=== PATIENT | female | born 1935 | race Caucasian/White ===

== ENCOUNTER 2019-09-05 20:19 | Inpatient (IN) ==
[2019-09-05] MEDS ORDERED: *HR* Dextrose 50 % in Water (Syg) 50 ML SYRINGE IVP PRN (23:25)
[2019-09-05] MEDS ORDERED: Dextrose Gel 15 GM/37.5 ML TUBE PO PRN ×2 (23:25)
[2019-09-05] MEDS ORDERED: D5% in Water 1,000 ML IVC PRN (23:25)
[2019-09-05] MEDS ORDERED: Morphine Sulfate 2 MG/ML SYRINGE IVP ONE (23:29)
[2019-09-06] MEDS: Insulin LISPRO 300 UNITS/3 ML VIAL SQ SCH ×4 (00:17→18:12)
[2019-09-06] MEDS ORDERED: Naloxone 0.4 MG/ML INJ IVP PRN (02:19)
[2019-09-06 03:12] LABS: Basophils % 0.3 %; Eosinophils % 0.2 %; Hematocrit 35.1 % (35.3-44.9); Hemoglobin 11.3 g/dL (11.5-15.4); Immature Granulocytes % 0.4 % (0-4); Lymphocytes # 1.1 K/mcL (0.6-4.6); Lymphocytes % 9.9 %; Mean Corpuscular HGB Conc 32.2 g/dL (31.6-35.5); Mean Corpuscular Hemoglobin 30.8 pg (28.0-33.3); Mean Corpuscular Volume 95.6 fL (83.0-100.0); Mean Platelet Volume 10.4 fL (9.4-12.4); Monocytes # 0.7 K/mcL (0.0-1.3); Monocytes % 6.9 %; Neutrophils # 8.8 K/mcL (1.6-8.9); Platelet Count 231 K/mcL (140-400); Red Blood Count 3.67 M/mcL (3.82-4.97); Red Cell Distribution Width 13.6 % (11.5-14.5); Segmented Neutrophils % 82.3 %; White Blood Count 10.7 K/mcL (4.3-11.1)
[2019-09-06 03:31] LABS: Alanine Aminotransferase 9 Units/L (7-52); Albumin 3.5 g/dL (3.5-5.7); Albumin/Globulin Ratio 1.1 (1.1-2.2); Alkaline Phosphatase 58 Units/L (34-104); Aspartate Amino Transferase 19 Units/L (13-39); BUN/Creatinine Ratio 21 (6-26); Bilirubin,Total 0.9 mg/dL (0.3-1.0); Blood Urea Nitrogen 19 mg/dL (8-23); Calcium 8.4 mg/dL (8.6-10.3); Carbon Dioxide 23 mEq/L (23-29); Chloride 105 mEq/L (98-107); Globulin 3.2 g/dL (2.4-3.5); Glucose 222 mg/dL (70-105); Magnesium 1.7 mg/dL (1.6-2.6); Osmolality,Calculated 283 (280-300); Phosphorous 2.8 mg/dL (2.7-4.5); Potassium 4.4 mEq/L (3.5-5.1); Sodium 132 mEq/L (136-145); Total Protein 6.7 g/dL (6.4-8.9); eGFR For African Americans > 60 (> 60); eGFR For Non-African Americans 60 (> 60)
[2019-09-06] MEDS ORDERED: *HR* Heparin 5,000 UNIT/ML VIAL IVP ONE (05:52)
[2019-09-06] MEDS ORDERED: Aspirin Enteric Coated 325 MG Tablet PO ONE (05:52)
[2019-09-06] MEDS ORDERED: *HR* Heparin 5,000 UNIT/ML VIAL IVP PRN ×2 (05:52)
[2019-09-06] MEDS ORDERED: Heparin 25,000 UNIT/250 ML D5W 25,000 UNIT/250 ML IV.SOLN IVC SCH (06:00)
[2019-09-06] MEDS ORDERED: Calcium Gluconate 1gm/50mL 1 GM/50 ML BAG IVPB ONE (06:32)
[2019-09-06 06:42] LABS: Hematocrit 32.9 % (35.3-44.9); Hemoglobin 10.6 g/dL (11.5-15.4); Mean Corpuscular HGB Conc 32.2 g/dL (31.6-35.5); Mean Corpuscular Hemoglobin 30.9 pg (28.0-33.3); Mean Corpuscular Volume 95.9 fL (83.0-100.0); Mean Platelet Volume 10.3 fL (9.4-12.4); Platelet Count 206 K/mcL (140-400); Red Blood Count 3.43 M/mcL (3.82-4.97); Red Cell Distribution Width 13.7 % (11.5-14.5)
[2019-09-06 06:58] LABS: INR 1.1; Prothrombin Time 12.8 Seconds (9.4-12.1)
[2019-09-06 14:17] LABS: Bilirubin,Urine Negative (Negative); Blood,Urine Small (Negative); Clarity,Urine Clear (Clear); Color,Urine Yellow (Yellow); Glucose,Urine (UA) Normal (Normal); Ketones,Urine Negative (Negative); Leukocyte Esterase,Urine Negative (Negative); Nitrite,Urine Negative (Negative); PH,Urine 5.5 pH Units (5.0-8.0); Protein,Urine 30 mg/dL (Neg-Trace); Specific Gravity,Urine 1.019 (1.010-1.025); Urobilinogen,Urine Normal (Normal)
[2019-09-06 14:21] LABS: Bacteria,Urine None Seen per hpf (None-Few); Hyaline Casts,Urine Few per lpf (None-Few); Squamous Epithelial Cell,Urine Many per lpf (None-Few)
[2019-09-06] MEDS: *HR* Heparin 5,000 UNIT/ML VIAL SQ SCH (18:12)
[2019-09-06] MEDS: Lactobacillus 1 EACH CAP.SPRINK PO SCH (19:30)
[2019-09-07] MEDS: Insulin LISPRO 300 UNITS/3 ML VIAL SQ SCH ×4 (00:54→19:39)
[2019-09-07] MEDS: *HR* Heparin 5,000 UNIT/ML VIAL SQ SCH ×2 (06:04→19:38)
[2019-09-07] MEDS: Lactobacillus 1 EACH CAP.SPRINK PO SCH (08:19)
[2019-09-07] MEDS: Acetaminophen IV 1,000 MG/100 ML INFUS..BTL IVPB SCH ×2 (10:29→17:37)
[2019-09-08] MEDS: Insulin LISPRO 300 UNITS/3 ML VIAL SQ SCH ×4 (00:19→21:31)
[2019-09-08] MEDS: Acetaminophen IV 1,000 MG/100 ML INFUS..BTL IVPB SCH ×2 (01:41→12:04)
[2019-09-08] MEDS: *HR* Heparin 5,000 UNIT/ML VIAL SQ SCH ×2 (04:15→18:19)
[2019-09-08 06:11] LABS: Basophils % 0.3 %; Eosinophils # 0.3 K/mcL (0.0-0.6); Eosinophils % 3.3 %; Hematocrit 31.8 % (35.3-44.9); Hemoglobin 10.6 g/dL (11.5-15.4); Immature Granulocytes % 0.6 % (0-4); Lymphocytes # 1.5 K/mcL (0.6-4.6); Lymphocytes % 16.7 %; Mean Corpuscular HGB Conc 33.3 g/dL (31.6-35.5); Mean Corpuscular Hemoglobin 30.7 pg (28.0-33.3); Mean Corpuscular Volume 92.2 fL (83.0-100.0); Mean Platelet Volume 10.3 fL (9.4-12.4); Monocytes # 0.9 K/mcL (0.0-1.3); Monocytes % 10.1 %; Neutrophils # 6.1 K/mcL (1.6-8.9); Platelet Count 191 K/mcL (140-400); Red Blood Count 3.45 M/mcL (3.82-4.97); Red Cell Distribution Width 13.2 % (11.5-14.5); White Blood Count 8.8 K/mcL (4.3-11.1)
[2019-09-08 06:33] LABS: Calcium 8.4 mg/dL (8.6-10.3); Potassium 4.5 mEq/L (3.5-5.1)
[2019-09-08] MEDS: Lactobacillus 1 EACH CAP.SPRINK PO SCH (08:24)
[2019-09-08] MEDS ORDERED: VERAPAMIL PO SCH (12:30)
[2019-09-08] MEDS ORDERED: TRANDOLAPRIL PO SCH (12:30)
[2019-09-08] MEDS ORDERED: *HR* Propofol 200 MG/20 ML VIAL IVP ONE ×2 (15:07→15:35)
[2019-09-08] MEDS ORDERED: *HR* FentaNYL (PF) 100 MCG/2 ML VIAL ONE ×2 (15:07→15:36)
[2019-09-08] MEDS ORDERED: Clindamycin 900 MG/50 ML 900 MG/50 ML IV.SOLN IVPB ONE ×2 (15:14→15:41)
[2019-09-08] MEDS ORDERED: Acetaminophen IV 1,000 MG/100 ML INFUS..BTL ONE (15:17)
[2019-09-08] MEDS ORDERED: Famotidine 20 MG/2 ML VIAL ONE (15:17)
[2019-09-08] MEDS ORDERED: Ethanol\\Acetic Acid\\Na Ace\\Ben 1,000 ML IRRIG.SOLN IR ONE (15:22)
[2019-09-08] MEDS ORDERED: *HR* Phenylephrine 10 MG/ML VIAL ONE (15:33)
[2019-09-08] MEDS ORDERED: Ondansetron 4 MG/2 ML VIAL ONE (15:33)
[2019-09-08] MEDS ORDERED: *HR* Rocuronium Bromide 50 MG/5 ML VIAL ONE (15:33)
[2019-09-08] MEDS ORDERED: Lidocaine -MPF 2% 2 ML VIAL ONE (15:33)
[2019-09-08] MEDS ORDERED: EPHEDrine 50 MG/ML VIAL ONE (15:52)
[2019-09-08] MEDS ORDERED: *HR* Succinylcholine 200 MG/10 ML VIAL IVP ONE (15:59)
[2019-09-08] MEDS ORDERED: Esmolol 100 MG/10 ML VIAL IVP ONE (16:05)
[2019-09-08] MEDS ORDERED: Morphine Sulfate 2 MG/ML SYRINGE IVP PRN (16:33)
[2019-09-08] MEDS ORDERED: Ondansetron 4 MG/2 ML VIAL IVP ONE (16:33)
[2019-09-08 17:29] LABS: Hematocrit 32.5 % (35.3-44.9); Hemoglobin 10.5 g/dL (11.5-15.4)
[2019-09-08] MEDS ORDERED: Sennosides 8.6 MG TABLET PO PRN (18:00)
[2019-09-08] MEDS ORDERED: Naloxone 0.4 MG/ML INJ IVP PRN ×2 (18:00)
[2019-09-08] MEDS ORDERED: Ringers Solution, Lactated 1,000 ML IVC SCH (18:00)
[2019-09-08] MEDS ORDERED: Dextrose Gel 15 GM/37.5 ML TUBE PO PRN ×2 (18:00)
[2019-09-08] MEDS ORDERED: *HR* Dextrose 50 % in Water (Syg) 50 ML SYRINGE IVP PRN (18:00)
[2019-09-08] MEDS ORDERED: Ondansetron 4 MG/2 ML VIAL IVP PRN (18:00)
[2019-09-08] MEDS ORDERED: MOM Conc 10 ML UD.LIQ PO PRN (18:00)
[2019-09-08] MEDS ORDERED: Insulin LISPRO 300 UNITS/3 ML VIAL SQ SCH (18:00)
[2019-09-08] MEDS ORDERED: Clindamycin 900 MG/50 ML 900 MG/50 ML IV.SOLN IVPB SCH (18:00)
[2019-09-08] MEDS ORDERED: *HR* Promethazine 25 MG/ML VIAL IVP PRN (18:00)
[2019-09-08] MEDS ORDERED: Temazepam 15 MG CAPSULE PO PRN (18:00)
[2019-09-08] MEDS ORDERED: D5% in Water 1,000 ML IVC PRN (18:00)
[2019-09-08] MEDS: Ascorbic Acid 500 MG TABLET PO SCH (18:18)
[2019-09-09] MEDS: Clindamycin 900 MG/50 ML 900 MG/50 ML IV.SOLN IVPB SCH ×2 (00:37→09:13)
[2019-09-09] MEDS: Acetaminophen IV 1,000 MG/100 ML INFUS..BTL IVPB SCH ×3 (00:38→18:10)
[2019-09-09 04:11] LABS: Basophils % 0.2 %; Eosinophils # 0.2 K/mcL (0.0-0.6); Eosinophils % 2.5 %; Hemoglobin 9.5 g/dL (11.5-15.4); Immature Granulocytes % 0.7 % (0-4); Lymphocytes # 1.1 K/mcL (0.6-4.6); Mean Corpuscular HGB Conc 32.8 g/dL (31.6-35.5); Mean Corpuscular Hemoglobin 30.6 pg (28.0-33.3); Mean Corpuscular Volume 93.5 fL (83.0-100.0); Mean Platelet Volume 10.8 fL (9.4-12.4); Monocytes # 0.8 K/mcL (0.0-1.3); Neutrophils # 6.2 K/mcL (1.6-8.9); Platelet Count 196 K/mcL (140-400); Red Cell Distribution Width 13.4 % (11.5-14.5); Segmented Neutrophils % 73.6 %; White Blood Count 8.4 K/mcL (4.3-11.1)
[2019-09-09 04:31] LABS: Blood Urea Nitrogen 17 mg/dL (8-23); Carbon Dioxide 25 mEq/L (23-29); Chloride 98 mEq/L (98-107); Potassium 4.6 mEq/L (3.5-5.1); Sodium 131 mEq/L (136-145)
[2019-09-09 04:32] LABS: BUN/Creatinine Ratio 17 (6-26); Calcium 8.2 mg/dL (8.6-10.3); Glucose 169 mg/dL (70-105); Osmolality,Calculated 277 (280-300); eGFR For African Americans > 60 (> 60); eGFR For Non-African Americans 53 (> 60)
[2019-09-09] MEDS: *HR* Heparin 5,000 UNIT/ML VIAL SQ SCH ×2 (04:59→18:09)
[2019-09-09] MEDS: Lactobacillus 1 EACH CAP.SPRINK PO SCH (09:13)
[2019-09-09] MEDS: Ascorbic Acid 500 MG TABLET PO SCH ×2 (09:14→15:25)
[2019-09-09] MEDS: Insulin LISPRO 300 UNITS/3 ML VIAL SQ SCH ×4 (09:15→20:11)
[2019-09-09] MEDS: Multivit/Ca/Min/Fe/FA 1 TAB TABLET PO SCH (15:13)
[2019-09-09] MEDS: Patient Taking Own Medication 1 EACH PO SCH (15:24)
[2019-09-09] MEDS: Aspirin Enteric Coated 81 MG Tablet PO SCH (15:25)
[2019-09-09] MEDS ORDERED: Aminoglycoside Consult 1 EACH MC ONE (18:42)
[2019-09-10] MEDS: Acetaminophen IV 1,000 MG/100 ML INFUS..BTL IVPB SCH ×2 (00:16→07:56)
[2019-09-10 03:52] LABS: Basophils % 0.3 %; Eosinophils # 0.3 K/mcL (0.0-0.6); Eosinophils % 2.7 %; Hematocrit 28.8 % (35.3-44.9); Hemoglobin 9.5 g/dL (11.5-15.4); Immature Granulocytes % 0.7 % (0-4); Lymphocytes # 2.2 K/mcL (0.6-4.6); Lymphocytes % 19.4 %; Mean Corpuscular Hemoglobin 31.5 pg (28.0-33.3); Mean Corpuscular Volume 95.4 fL (83.0-100.0); Mean Platelet Volume 10.8 fL (9.4-12.4); Monocytes # 1.4 K/mcL (0.0-1.3); Monocytes % 12.5 %; Neutrophils # 7.4 K/mcL (1.6-8.9); Platelet Count 225 K/mcL (140-400); Red Blood Count 3.02 M/mcL (3.82-4.97); Red Cell Distribution Width 13.4 % (11.5-14.5); Segmented Neutrophils % 64.4 %; White Blood Count 11.4 K/mcL (4.3-11.1)
[2019-09-10 04:15] LABS: BUN/Creatinine Ratio 14 (6-26); Blood Urea Nitrogen 14 mg/dL (8-23); Calcium 8.5 mg/dL (8.6-10.3); Carbon Dioxide 25 mEq/L (23-29); Chloride 93 mEq/L (98-107); Glucose 107 mg/dL (70-105); Osmolality,Calculated 265 (280-300); Potassium 4.3 mEq/L (3.5-5.1); Sodium 127 mEq/L (136-145); eGFR For African Americans > 60 (> 60); eGFR For Non-African Americans 52 (> 60)
[2019-09-10] MEDS: *HR* Heparin 5,000 UNIT/ML VIAL SQ SCH (05:26)
[2019-09-10] MEDS: Multivit/Ca/Min/Fe/FA 1 TAB TABLET PO SCH (07:56)
[2019-09-10] MEDS: Ascorbic Acid 500 MG TABLET PO SCH (07:56)
[2019-09-10] MEDS: Lactobacillus 1 EACH CAP.SPRINK PO SCH (07:56)
[2019-09-10] MEDS: Aspirin Enteric Coated 81 MG Tablet PO SCH (07:57)
[2019-09-10] MEDS: Patient Taking Own Medication 1 EACH PO SCH (07:58)
[2019-09-10] MEDS: Insulin LISPRO 300 UNITS/3 ML VIAL SQ SCH ×2 (08:05→13:23)
[2019-09-10] MEDS ORDERED: Fosfomycin Tromethamine 3 GM Packet PO ONE (08:30)
[2019-09-10] MEDS ORDERED: Acetaminophen 325 MG TABLET PO PRN ×2 (15:18→15:21)
[2019-09-10 17:12] VITALS: BP 137/60
== END 2019-09-10 18:43 | disposition home or self-care (01) | DRG 469 ==
LOC: 3NENU → SUATTDRO 09-06 02:19
PROVIDERS: ADMIT Internal Medicine; ATTEND Internal Medicine

== ENCOUNTER 2019-10-15 22:58 | Inpatient (IN) ==
[2019-10-16] MEDS ORDERED: Naloxone 0.4 MG/ML INJ IVP PRN (02:17)
[2019-10-16] MEDS ORDERED: Nitroglycerin 0.4 MG TAB.SUBL SL PRN (02:23)
[2019-10-16] MEDS ORDERED: *HR* Heparin 5,000 UNIT/ML VIAL IVP ONE (02:38)
[2019-10-16] MEDS ORDERED: *HR* Heparin 5,000 UNIT/ML VIAL IVP PRN ×2 (02:38)
[2019-10-16] MEDS ORDERED: Heparin 25,000 UNIT/250 ML D5W 25,000 UNIT/250 ML IV.SOLN IVC SCH (02:45)
[2019-10-16 03:17] LABS: Basophils % 0.3 %; Eosinophils % 0.1 %; Hematocrit 30.6 % (35.3-44.9); Hemoglobin 10.2 g/dL (11.5-15.4); Immature Granulocytes % 0.7 % (0-4); Lymphocytes # 2.6 K/mcL (0.6-4.6); Lymphocytes % 18.7 %; Mean Corpuscular HGB Conc 33.3 g/dL (31.6-35.5); Mean Corpuscular Hemoglobin 30.3 pg (28.0-33.3); Mean Corpuscular Volume 90.8 fL (83.0-100.0); Mean Platelet Volume 9.9 fL (9.4-12.4); Monocytes # 1.1 K/mcL (0.0-1.3); Monocytes % 8.1 %; Neutrophils # 9.9 K/mcL (1.6-8.9); Platelet Count 312 K/mcL (140-400); Red Blood Count 3.37 M/mcL (3.82-4.97); Red Cell Distribution Width 14.2 % (11.5-14.5); Segmented Neutrophils % 72.1 %; White Blood Count 13.8 K/mcL (4.3-11.1)
[2019-10-16 03:24] LABS: INR 1.3
[2019-10-16 03:43] LABS: Calcium 8.8 mg/dL (8.6-10.3); Potassium 4.7 mEq/L (3.5-5.1)
[2019-10-16 03:52] LABS: Albumin 3.5 g/dL (3.5-5.7); Albumin/Globulin Ratio 1.1 (1.1-2.2); Bilirubin,Direct 0.2 mg/dL (0.0-0.2); Bilirubin,Indirect 0.6 mg/dL (0.0-1.0); Bilirubin,Total 0.8 mg/dL (0.3-1.0); Globulin 3.1 g/dL (2.4-3.5); Total Protein 6.6 g/dL (6.4-8.9)
[2019-10-16 04:05] LABS: Thyroid Stimulating Hormone 4.29 mcIU/mL (0.340-5.600)
[2019-10-16] MEDS: Insulin LISPRO 300 UNITS/3 ML VIAL SQ SCH ×4 (04:34→16:47)
[2019-10-16] MEDS ORDERED: Aspirin 81 MG TAB.CHEW PO SCH (09:00)
[2019-10-16] MEDS ORDERED: Furosemide 40 MG/4 ML VIAL IVP SCH (12:45)
[2019-10-16] MEDS ORDERED: Sennosides/Docusate Sodium TABLET PO PRN (13:57)
[2019-10-16] MEDS ORDERED: Dextrose Gel 15 GM/37.5 ML TUBE PO PRN ×2 (13:59)
[2019-10-16] MEDS ORDERED: D5% in Water 1,000 ML IVC PRN (13:59)
[2019-10-16] MEDS ORDERED: *HR* Dextrose 50 % in Water (Syg) 50 ML SYRINGE IVP PRN (13:59)
[2019-10-16] MEDS: Acetaminophen 325 MG TABLET PO SCH ×2 (16:47→20:09)
[2019-10-16] MEDS: Melatonin 3 MG TABLET PO SCH (20:09)
[2019-10-17] MEDS ORDERED: Heparin 25,000 UNIT/250 ML D5W 25,000 UNIT/250 ML IV.SOLN IVC SCH (00:08)
[2019-10-17 03:50] LABS: Bilirubin,Urine Negative (Negative); Blood,Urine Negative (Negative); Clarity,Urine Clear (Clear); Color,Urine Yellow (Yellow); Glucose,Urine (UA) Normal (Normal); Ketones,Urine Negative (Negative); Leukocyte Esterase,Urine Moderate (Negative); Nitrite,Urine Negative (Negative); Protein,Urine Negative (Neg-Trace); Urobilinogen,Urine Normal (Normal)
[2019-10-17 03:52] LABS: Bacteria,Urine Many per hpf (None-Few); Hyaline Casts,Urine None Seen per lpf (None-Few); RBC,Urine 0-3 per hpf (0-3); Squamous Epithelial Cell,Urine Few per lpf (None-Few); WBC,Urine 30-50 per hpf (0-3)
[2019-10-17 03:59] LABS: Creatinine,Urine 32 mg/dL; Microalbum/Creatinine Ratio,Ur 88 mcg/mg (Less than 30); Microalbumin,Urine 28 mg/L
[2019-10-17] MEDS: Insulin LISPRO 300 UNITS/3 ML VIAL SQ SCH ×3 (06:57→16:38)
[2019-10-17] MEDS: Acetaminophen 325 MG TABLET PO SCH ×3 (07:04→21:56)
[2019-10-17] MEDS: Furosemide 20 MG/2 ML VIAL IVP SCH (07:04)
[2019-10-17] MEDS: Fluticasone Propionate Nasal 50 MCG/SPRAY BOTTLE NS SCH (07:05)
[2019-10-17 07:35] LABS: Basophils # 0.1 K/mcL (0.0-0.2); Basophils % 0.6 %; Eosinophils # 0.2 K/mcL (0.0-0.6); Eosinophils % 2.7 %; Hematocrit 29.9 % (35.3-44.9); Hemoglobin 9.5 g/dL (11.5-15.4); Immature Granulocytes % 0.6 % (0-4); Lymphocytes # 2.4 K/mcL (0.6-4.6); Lymphocytes % 26.2 %; Mean Corpuscular HGB Conc 31.8 g/dL (31.6-35.5); Mean Corpuscular Volume 94.3 fL (83.0-100.0); Mean Platelet Volume 10.1 fL (9.4-12.4); Monocytes # 0.8 K/mcL (0.0-1.3); Monocytes % 9.3 %; Neutrophils # 5.5 K/mcL (1.6-8.9); Platelet Count 308 K/mcL (140-400); Red Blood Count 3.17 M/mcL (3.82-4.97); Red Cell Distribution Width 13.8 % (11.5-14.5); Segmented Neutrophils % 60.6 %; White Blood Count 9.1 K/mcL (4.3-11.1)
[2019-10-17 07:47] LABS: Calcium 8.5 mg/dL (8.6-10.3); Potassium 4.4 mEq/L (3.5-5.1)
[2019-10-17] MEDS: Verapamil ER (24 HR) 240 MG TABLET.ER PO SCH (09:43)
[2019-10-17] MEDS ORDERED: *HR* OxyCODONE Immed Rel 5 MG TABLET PO PRN (10:02)
[2019-10-17] MEDS ORDERED: Naloxone 0.4 MG/ML INJ IVP PRN (10:02)
[2019-10-17] MEDS: *HR* HYDROcodone/Acet 5/325 mg TABLET PO PRN ×2 (10:17→18:39)
[2019-10-17] MEDS: *HR* Heparin 5,000 UNIT/ML VIAL SQ SCH (16:39)
[2019-10-17] MEDS: Melatonin 3 MG TABLET PO SCH (21:57)
[2019-10-18 01:52] LABS: Calcium 8.2 mg/dL (8.6-10.3); Magnesium 1.8 mg/dL (1.6-2.6); Potassium 4.1 mEq/L (3.5-5.1)
[2019-10-18] MEDS: Insulin LISPRO 300 UNITS/3 ML VIAL SQ SCH ×3 (07:21→16:14)
[2019-10-18] MEDS: Verapamil ER (24 HR) 240 MG TABLET.ER PO SCH (07:24)
[2019-10-18] MEDS: Fluticasone Propionate Nasal 50 MCG/SPRAY BOTTLE NS SCH (07:25)
[2019-10-18] MEDS: *HR* Heparin 5,000 UNIT/ML VIAL SQ SCH ×2 (07:25→16:19)
[2019-10-18] MEDS: Furosemide 20 MG/2 ML VIAL IVP SCH (07:25)
[2019-10-18] MEDS: Acetaminophen 325 MG TABLET PO SCH ×3 (07:25→21:08)
[2019-10-18] MEDS: *HR* HYDROcodone/Acet 5/325 mg TABLET PO PRN ×2 (07:30→15:12)
[2019-10-18] MEDS: Ondansetron ODT 4 MG TAB.RAPDIS SL PRN ×2 (12:20→21:15)
[2019-10-18] MEDS: Sennosides/Docusate Sodium TABLET PO SCH ×2 (21:07→21:15)
[2019-10-18] MEDS: Melatonin 3 MG TABLET PO SCH (21:09)
[2019-10-19 04:11] LABS: Basophils # 0.1 K/mcL (0.0-0.2); Basophils % 0.6 %; Eosinophils # 0.3 K/mcL (0.0-0.6); Eosinophils % 3.6 %; Hematocrit 30.5 % (35.3-44.9); Immature Granulocytes % 0.9 % (0-4); Lymphocytes # 2.7 K/mcL (0.6-4.6); Lymphocytes % 32.8 %; Mean Corpuscular HGB Conc 32.8 g/dL (31.6-35.5); Mean Corpuscular Hemoglobin 29.9 pg (28.0-33.3); Mean Platelet Volume 9.9 fL (9.4-12.4); Monocytes # 0.9 K/mcL (0.0-1.3); Neutrophils # 4.2 K/mcL (1.6-8.9); Platelet Count 321 K/mcL (140-400); Red Blood Count 3.35 M/mcL (3.82-4.97); Red Cell Distribution Width 14.3 % (11.5-14.5); Segmented Neutrophils % 51.1 %; White Blood Count 8.1 K/mcL (4.3-11.1)
[2019-10-19 04:33] LABS: Calcium 8.8 mg/dL (8.6-10.3); Potassium 4.5 mEq/L (3.5-5.1)
[2019-10-19] MEDS: *HR* Heparin 5,000 UNIT/ML VIAL SQ SCH ×2 (05:50→15:47)
[2019-10-19] MEDS: Insulin LISPRO 300 UNITS/3 ML VIAL SQ SCH ×3 (07:07→15:46)
[2019-10-19] MEDS: Ondansetron ODT 4 MG TAB.RAPDIS SL PRN (07:20)
[2019-10-19] MEDS: Verapamil ER (24 HR) 240 MG TABLET.ER PO SCH (07:20)
[2019-10-19] MEDS: *HR* HYDROcodone/Acet 5/325 mg TABLET PO PRN (07:20)
[2019-10-19] MEDS: Furosemide 40 MG TABLET PO SCH (07:20)
[2019-10-19] MEDS: Metoprolol XL (24 HR) Succ 25 MG TAB.ER.24H PO SCH (07:20)
[2019-10-19] MEDS: Acetaminophen 325 MG TABLET PO SCH ×3 (07:21→22:47)
[2019-10-19] MEDS: Fluticasone Propionate Nasal 50 MCG/SPRAY BOTTLE NS SCH (07:21)
[2019-10-19] MEDS: Sennosides/Docusate Sodium TABLET PO SCH ×2 (07:21→22:47)
[2019-10-19] MEDS ORDERED: *HR* Promethazine 25 MG/ML VIAL IVP PRN (08:51)
[2019-10-19] MEDS ORDERED: Ondansetron 4 MG/2 ML VIAL IVP ONE (22:30)
[2019-10-19] MEDS: Melatonin 3 MG TABLET PO SCH (22:48)
[2019-10-20 04:30] LABS: Basophils # 0.1 K/mcL (0.0-0.2); Basophils % 0.5 %; Eosinophils # 0.1 K/mcL (0.0-0.6); Eosinophils % 0.7 %; Hematocrit 31.6 % (35.3-44.9); Hemoglobin 10.1 g/dL (11.5-15.4); Immature Granulocytes % 0.6 % (0-4); Lymphocytes # 1.6 K/mcL (0.6-4.6); Lymphocytes % 12.5 %; Mean Corpuscular Hemoglobin 30.1 pg (28.0-33.3); Mean Platelet Volume 10.1 fL (9.4-12.4); Monocytes # 0.8 K/mcL (0.0-1.3); Monocytes % 6.2 %; Platelet Count 303 K/mcL (140-400); Red Blood Count 3.36 M/mcL (3.82-4.97); Red Cell Distribution Width 14.2 % (11.5-14.5); Segmented Neutrophils % 79.5 %
[2019-10-20 04:33] LABS: White Blood Count 12.6 K/mcL (4.3-11.1)
[2019-10-20 04:49] LABS: Calcium 8.9 mg/dL (8.6-10.3); Potassium 4.5 mEq/L (3.5-5.1)
[2019-10-20 06:36] VITALS: BP 143/75
[2019-10-20] MEDS: *HR* Heparin 5,000 UNIT/ML VIAL SQ SCH (06:53)
[2019-10-20] MEDS: Insulin LISPRO 300 UNITS/3 ML VIAL SQ SCH (08:13)
[2019-10-20] MEDS: Sennosides/Docusate Sodium TABLET PO SCH ×2 (08:14→08:18)
[2019-10-20] MEDS: Acetaminophen 325 MG TABLET PO SCH (08:14)
[2019-10-20] MEDS: Verapamil ER (24 HR) 240 MG TABLET.ER PO SCH (08:14)
[2019-10-20] MEDS: Furosemide 40 MG TABLET PO SCH (08:14)
[2019-10-20] MEDS: Fluticasone Propionate Nasal 50 MCG/SPRAY BOTTLE NS SCH (08:15)
[2019-10-20] MEDS: Metoprolol XL (24 HR) Succ 25 MG TAB.ER.24H PO SCH (08:15)
[2019-10-20] MEDS ORDERED: Sulfamethoxazole/Trimeth DS 1 EACH TABLET PO SCH (09:00)
[2019-10-20] MEDS ORDERED: Nitrofurantoin (BID) 100 MG CAPSULE PO SCH (09:03)
[2019-10-20] MEDS ORDERED: Sulfamethoxazole/Trimeth SS 1 TAB PO SCH (21:00)
== END 2019-10-20 11:32 | DRG 280 ==
LOC: 2ANU → SUATTDRO 10-16 01:44
PROVIDERS: ADMIT Internal Medicine; ATTEND Family Medicine